=== PATIENT | male | born 1960 | race Caucasian/White ===

== ENCOUNTER 2019-04-04 13:37 | Emergency (ER) | payer OTHER, SELFPAY ==
--- NOTE | 2019-04-04 13:39 | ED.GENADULT ---
HPI - General Adult General Chief complaint: Wound/Laceration Stated complaint: Puncture wound on bottom of feet Time Seen by Provider: 04/04/19 13:58 Source: patient Mode of arrival: ambulatory Limitations: no limitations History of Present Illness HPI narrative: 59-year-old male patient presents to the [facility] with complaints of puncture wound to bilateral feet. Patient states that happened about a week ago and states that he stepped with his right foot onto a screw and then when he stepped back he also stepped on with his left foot onto a nail. Patient states he did puncture both of the areas. Patient states he has been cleaning the area with rubbing alcohol and hydrogen peroxide. Patient unaware of when his last tetanus shot was. Patient denies being a diabetic that he is aware of. Patient states he was trying to treat this for himself however the last couple of days he has noticed some white discharge coming from the left foot as well as increase in pain to both sites. Patient states that when the injury did occur the nail and screw did go through the shoe. Patient states he did take 1 dose of ibuprofen yesterday but really has not been taking too much for the pain. Related Data Allergies Allergy/AdvReac Type Severity Reaction Status Date / Time No Known Allergies Allergy Unknown Unverified 12/06/18 11:11 Review of Systems Review of Systems: Narrative: CONSTITUTIONAL: Denies fever, chills, or sweats. EYES: Denies visual changes, redness, or discharge. ENT: Denies rhinorrhea, congestion, sore throat, or otalgia. CARDIOVASCULAR: Denies chest pain, palpitations, or edema. RESPIRATORY: Denies cough or dyspnea. GASTROINTESTINAL: Denies abdominal pain, nausea, vomiting, or diarrhea. GENITOURINARY: Denies dysuria or hematuria. SKIN: Denies rash or itching. Positive puncture wounds to bilateral feet x1 week MUSCULOSKELETAL: Denies back pain, joint pain, or myalgia. NEUROLOGIC: Denies headache, numbness, or weakness. PSYCHIATRIC: Denies anxiety or depression. [facility] Past Medical History Medical History (Updated 04/04/19 @ 14:13 by ANA Go) Anxiety Depression Emphysema lung Hypertension Surgical History Surgical History (Updated 04/04/19 @ 13:40 by ANA Go) History of appendectomy Social History Social History Smoking status: Former smoker Smoking end date: 02/28/94 Alcohol intake: current Comments At the time of my signature I agree with nursing past medical history, surgical, social, and family history. There is no relevant family history pertinent to the presenting complaint. Exam Narrative: Exam Narrative: GENERAL: Well-appearing, well-nourished, and in no acute distress. HEAD: Normocephalic, atraumatic. EYES: PERRLA and EOMI. ENT: Nares clear, no rhinorrhea or epistaxis. Mucous membranes moist. NECK: Supple. No lymphadenopathy CHEST: Clear to auscultation. No respiratory distress. HEART: Regular rate and rhythm. No murmur heard. Normal peripheral pulses. ABDOMEN: Soft, nontender, nondistended, normal active bowel sounds. EXTREMITIES: Normal range of motion. No edema. SKIN: Warm, dry, no rash. Patient has a small black puncture wound noted to the ball of the left foot in between the third and fourth metatarsal on the sole of the foot. There is no obvious surrounding erythema but there is tenderness on palpation as well as a little hard area around the wound. There is no warmth noted. No active discharge noted at this time. There is another puncture wound noted to the sole of the right foot. Does have some tenderness noted to the area as well but no surrounding erythema no warmth. NEURO: No focal deficits. Alert and oriented x3. Course Vital Signs Vital signs: Vital Signs Temperature 36.1 C L 04/04/19 13:49 Pulse Rate 76 04/04/19 13:49 Respiratory Rate 18 04/04/19 13:49 Blood Pressure 151/96 H 04/04/19
[2019-04-04 13:49] VITALS: BP 151/96; PULSE 76; RESP 18; TEMP 36.1; O2SAT 99
[2019-04-04] MEDS: TETANUS,DIPHTHERIA,AC PERTUSSIS ADULT 0.5 ML (ADACEL) IM (14:15)
== END 2019-04-04 14:35 | disposition home or self-care (01) ==
PROVIDERS: Emergency Provider Nurse Practitioner Family
DX: S91.332A Puncture wound without foreign body, left foot, initial encounter (principal); S91.331A Puncture wound without foreign body, right foot, initial encounter; W45.0XXA Nail entering through skin, initial encounter; Z23 Encounter for immunization; Z87.891 Personal history of nicotine dependence; J43.9 Emphysema, unspecified; I10 Essential (primary) hypertension
CPT/HCPCS: 90471; 90715; 99213; G0463

== ENCOUNTER 2019-04-12 12:20 | Outpatient (CLI) | payer OTHER, SELFPAY ==
[2019-04-12 13:17] LABS: Basophils Absolute Auto 0.1 K/mm3 (0.0-0.1); Basophils Percent Auto 1.1 % (0.2-1.2); Eosinophils Absolute Auto 0.9 K/mm3 (0-0.3); Eosinophils Percent Auto 9.3 % (0-4.4); Hematocrit 48.9 % (42.0-52.0); Hemoglobin 16.9 g/dL (14.0-18.0); Immature Granulocyte Absolute 0.05 K/mm3 (0.00-0.031); Immature Granulocyte Percent A 0.5 % (0-0.5); Lymphocytes Absolute Auto 3.08 K/mm3 (0.9-3.2); Lymphocytes Percent Auto 32.9 % (18.3-44.2); Mean Corpuscular HGB Conc 34.6 g/dl (32-36); Mean Corpuscular Hemoglobin 31.5 pg (26-34); Mean Corpuscular Volume 91.2 fl (80-100); Mean Platelet Volume 10.2 fl (7.4-10.4); Monocytes Absolute Auto 0.7 K/mm3 (0.1-0.6); Monocytes Percent Auto 6.9 % (2.6-8.5); Neutrophils Absolute Auto 4.6 K/mm3 (1.3-6.7); Neutrophils Percent Auto 49.3 % (45.5-73.1); Platelet Count Result 184 k/mm3 (150-375); Red Blood Count 5.36 M/mm3 (4.6-6.20); Red Cell Distribution Width 13.2 % (11.5-14.5); White Blood Count 9.4 K/mm3 (4.5-10.0)
[2019-04-12 13:25] LABS: Alanine Aminotransferase 21 U/L (4-50); Albumin Level 4.5 g/dL (3.5-5.1); Alkaline Phosphatase 43 U/L (38-126); Aspartate Amino Transferase 24 U/L (17-59); Bilirubin,Total 0.6 mg/dL (0.2-1.3); Blood Urea Nitrogen 24 mg/dL (9-20); Carbon Dioxide 26 mmol/L (22-30); Chloride 101 mmol/L (98-107); Cholesterol 211 mg/dL (0-200); Estimated Glomerular Filt Rate 57; Glucose 86 mg/dL (75-110); HDL Direct 42 mg/dL; Potassium 4.3 mmol/L (3.4-5.0); Sodium 141 mmol/L (137-145); Triglycerides 231 mg/dL (<150)
[2019-04-12 13:35] LABS: LDL Cholesterol Direct 131 mg/dL
[2019-04-12 13:54] LABS: Prostate Specific Antigen 0.8 ng/mL (< OR = 4.0)
[2019-04-12 14:00] LABS: Hepatitis B Core IgM Result Negative (Negative)
[2019-04-12 14:05] LABS: Vitamin D 25 Hydroxy 17.1 ng/mL
[2019-04-12 14:12] LABS: HIV 1/2 Ab P24 Ag Result Negative (Negative); Hepatitis C Virus Antibody Negative (Negative)
[2019-04-13 07:31] LABS: Rapid Plasma Reagin Non-Reactive (NonReactive)
== END 2019-04-12 12:21 | disposition home or self-care (01) ==
PROVIDERS: PCP Physician Assistant; Visit Provider Family Medicine
DX: Z00.00 Encounter for general adult medical examination without abnormal findings (principal); Z11.3 Encounter for screening for infections with a predominantly sexual mode of transmission
CPT/HCPCS: 36415; 80053; 80061; 82306; 84153; 84443; 85025; 86592; 86703; 86705; 86803; G0432

== ENCOUNTER 2019-10-03 13:09 | Outpatient (CLI) | payer OTHER, SELFPAY ==
--- NOTE | ~2019-10-03 | XR_ITS ---
XR foot LT 2V DATE: 10/03/2019 13:24 INDICATION: Stubbed fifth toe 2 days ago. Pain. TECHNIQUE: AP and lateral views of left foot COMPARISON: None FINDINGS: No fracture or dislocation, periosteal reaction or bone destruction. IMPRESSION: Negative Reviewed, dictated and finalized at location B. IMPRESSION: Negative
== END 2019-10-03 13:10 | disposition home or self-care (01) ==
LOC: ANHIMG 13:12
PROVIDERS: PCP Family Medicine; Visit Provider Family Medicine
DX: M79.672 Pain in left foot (principal)
CPT/HCPCS: 73620

== ENCOUNTER 2019-10-23 10:36 | Outpatient (CLI) | payer OTHER, SELFPAY ==
[2019-10-23 11:07] LABS: Basophils Absolute Auto 0.1 K/mm3 (0.0-0.1); Eosinophils Absolute Auto 0.9 K/mm3 (0-0.3); Eosinophils Percent Auto 10.2 % (0-4.4); Hematocrit 44.6 % (42.0-52.0); Hemoglobin 15.5 g/dL (14.0-18.0); Immature Granulocyte Absolute 0.02 K/mm3 (0.00-0.031); Immature Granulocyte Percent A 0.2 % (0-0.5); Lymphocytes Absolute Auto 3.41 K/mm3 (0.9-3.2); Lymphocytes Percent Auto 38.2 % (18.3-44.2); Mean Corpuscular HGB Conc 34.8 g/dl (32-36); Mean Corpuscular Hemoglobin 31.9 pg (26-34); Mean Corpuscular Volume 91.8 fl (80-100); Mean Platelet Volume 10.3 fl (7.4-10.4); Monocytes Absolute Auto 0.5 K/mm3 (0.1-0.6); Monocytes Percent Auto 5.6 % (2.6-8.5); Neutrophils Percent Auto 44.8 % (45.5-73.1); Platelet Count Result 176 k/mm3 (150-375); Red Blood Count 4.86 M/mm3 (4.6-6.20); Red Cell Distribution Width 12.9 % (11.5-14.5); White Blood Count 8.9 K/mm3 (4.5-10.0)
== END 2019-10-23 10:37 | disposition home or self-care (01) ==
PROVIDERS: PCP Family Medicine; Visit Provider Family Medicine
DX: S99.922A Unspecified injury of left foot, initial encounter (principal); X58.XXXA Exposure to other specified factors, initial encounter
CPT/HCPCS: 36415; 85025

== ENCOUNTER 2020-04-30 13:34 | Emergency (ER) | payer OTHER, SELFPAY ==
--- NOTE | ~2020-04-30 | CT_ITS ---
EXAMINATION: CT sinus w con DATE: 04/30/2020 16:50 INDICATION: Nasal obstruction TECHNIQUE: Computed tomography (CT) of the paranasal sinuses was performed with 75 mL Omnipaque-350 i ntravenous contrast. Sagittal and coronal reconstructions were obtained. Iterative reconstruction mamadou hnique was employed. The dose-length product was 324.57 mGy-cm. COMPARISON: None FINDINGS: There is rightward deviation of the nasal septum with right-sided osseous spike. There is complete op acification of the bilateral frontal sinuses, the bilateral frontoethmoidal recesses, several bilater al ethmoid air cells and the bilateral ostiomeatal units. Polypoid appearing mucosal thickening in th e nasal cavity, the right maxillary and bilateral sphenoid sinuses. In the nasal cavity the mucosal t hickening appears to extend through a defect in the medial wall of the left maxillary sinus likely re presenting sequela of prior antral window procedure. Mild mucosal thickening in the left maxillary si nus with small amount of layering fluid in the dependent aspect of the sinus. There is likely postope rative defect in the posterior wall of the left maxillary sinus. Bilateral orbits are normal. Mastoid air cells and middle ear cavities are clear. No acute maxillofacial fractures. The maxilla is edentu lous. Brain is unremarkable. No abnormally enhancing lesions identified. There is some scarring along the midline of the posterior frontal scalp. IMPRESSION: 1. Extensive sinus disease with occlusion of the bilateral ostiomeatal units and complete opacificati on of the bilateral frontal sinuses, frontoethmoidal recesses and several bilateral ethmoid air cells . 2. Additional prominent polypoidal mucosal thickening in the bilateral nasal cavities. Reviewed, dictated and finalized at location B. [employer]ER IMPRESSION: 1. Extensive sinus disease with occlusion of the bilateral ostiomeatal units an d complete opacification of the bilateral frontal sinuses, frontoethmoidal rece sses and several bilateral ethmoid air cells. 2. Additional prominent polypoidal mucosal thickening in the bilateral nasal ca vities.
[2020-04-30 13:48] VITALS: BP 154/100; PULSE 102; RESP 18; TEMP 36.7; O2SAT 96
--- NOTE | 2020-04-30 15:16 | ED.HA ---
HPI - Headache General Chief Complaint: Headache <Diogo Bond MD - Last Filed: 04/30/20 19:03> Stated Complaint: sinus issues x 6 weeks <Diogo Bond MD - Last Filed: 04/30/20 19:03> Time Seen by Provider: 04/30/20 15:16 <Diogo Bond MD - Last Filed: 04/30/20 19:03> History of Present Illness HPI Narrative: 60 yo male presents for sinus issues. He reports that he has had sinus pressure and nasal obstruction for the past 6 weeks. He just completed a course of antibiotics without improvement. No fevers. He says that there is something in his right nostril that bulges out when he blows his nose. <Diogo Bond MD - Last Filed: 04/30/20 19:03> Related Data Allergies/Adverse Reactions: Allergies Allergy/AdvReac Type Severity Reaction Status Date / Time No Known Allergies Allergy Unknown Unverified 12/06/18 11:11 <Diogo Bond MD - Last Filed: 04/30/20 19:03> Review of Systems Review of Systems: All systems reviewed & are unremarkable except as noted in HPI and below <Diogo Bond MD - Last Filed: 04/30/20 19:03> Constitutional: Constitutional: Denies chills and Denies fever(s) <Diogo Bond MD - Last Filed: 04/30/20 19:03> Eyes: Eyes: Reports no additional eye complaints <Diogo Bond MD - Last Filed: 04/30/20 19:03> ENT: Reports nasal congestion and Denies sore throat <Diogo Bond MD - Last Filed: 04/30/20 19:03> Cardiovascular: Cardiovascular: Denies chest pain <Diogo Bond MD - Last Filed: 04/30/20 19:03> Gastrointestinal: Gastrointestinal: Denies nausea <Diogo Bond MD - Last Filed: 04/30/20 19:03> Genitourinary: Genitourinary: Reports no additional male genitourinary complaints <Diogo Bond MD - Last Filed: 04/30/20 19:03> Neurologic: Denies dizziness and Denies weakness <Diogo Bond MD - Last Filed: 04/30/20 19:03> [facility] Past Medical History Medical History: Medical History Anxiety Depression Emphysema lung Hypertension <Diogo Bond MD - Last Filed: 04/30/20 19:03> Surgical History Surgical History: Surgical History History of appendectomy <Diogo Bond MD - Last Filed: 04/30/20 19:03> Social History Social History: Social History Smoking status: Former smoker Smoking end date: 02/28/94 Alcohol intake: current Gender identity (if verbalized by the patient): Male <Diogo Bond MD - Last Filed: 04/30/20 19:03> Exam Const: General: no acute distress and alert <Diogo Bond MD - Last Filed: 04/30/20 19:03> Orientation/consciousness: patient oriented x3 <Diogo Bond MD - Last Filed: 04/30/20 19:03> HENMT: Face and sinus: no sinus tenderness <Diogo Bond MD - Last Filed: 04/30/20 19:03> Mouth: Yes moist mucous membranes abnormal <Diogo Bond MD - Last Filed: 04/30/20 19:03> Other: Large mass protruding from posterior portion of the nose, appears fluid filled. <Diogo Bond MD - Last Filed: 04/30/20 19:03> Eyes: Pupils: Equal, round and reactive pupils present <Diogo Bond MD - Last Filed: 04/30/20 19:03> EOM: EOMs intact bilaterally <Diogo Bond MD - Last Filed: 04/30/20 19:03> Neck: Neck: normal visual inspection and lymphadenopathy noted <Diogo Bond MD - Last Filed: 04/30/20 19:03> Resp: Effort & Inspection: normal respiratory effort <Diogo Bond MD - Last Filed: 04/30/20 19:03> Skin: General skin exam: normal color <Diogo Bond MD - Last Filed: 04/30/20 19:03> Neuro: General: patient oriented x3, moves all extremities, no focal motor deficits and CN's II-XI intact bilaterally <Diogo Bond MD - Last Filed: 04/30/20 19:03> Speech: normal speech <G
[2020-04-30 16:44] LABS: Estimated CRCL calculation 86 ml/min; Estimated Glomerular Filt Rate > 60
[2020-04-30 17:24] VITALS: BP 153/101; PULSE 85; RESP 18; TEMP 36.1; O2SAT 99
[2020-04-30] MEDS: predniSONE 20 MG TABLET 60 MG PO (17:27)
[2020-04-30 18:24] VITALS: BP 148/99; PULSE 83; RESP 19; TEMP 36.4; O2SAT 98
== END 2020-04-30 18:26 | disposition home or self-care (01) ==
PROVIDERS: Emergency Provider Emergency Medicine; PCP Family Medicine
DX: J33.0 Polyp of nasal cavity (principal); J43.9 Emphysema, unspecified; I10 Essential (primary) hypertension; Z87.891 Personal history of nicotine dependence
CPT/HCPCS: 70487; 99284; J7512; Q9967

== ENCOUNTER 2021-01-22 08:21 | Emergency (ER) | payer OTHER, SELFPAY ==
[2021-01-22] VITALS (8 sets, daily range): BP systolic 148–191; BP diastolic 96–141; PULSE 76–86; RESP 16–32; TEMP 36.8; O2SAT 95–97
--- NOTE | ~2021-01-22 | XR_ITS ---
EXAMINATION: XR chest 2V DATE: 01/22/2021 09:19 INDICATION: Dyspnea TECHNIQUE: AP and lateral views of the chest are obtained. COMPARISON: 12/06/2018 FINDINGS: The lungs are free of acute opacities. There is no pleural effusion or pneumothorax. The ca rdiomediastinal silhouette is normal. There is moderate thoracic spondylosis. IMPRESSION: 1. No acute cardiopulmonary abnormality. Reviewed, dictated and finalized at location A. [place] MANAGER
--- NOTE | 2021-01-22 08:27 | ECG_ITS ---
Measurements Intervals [place] Rate: 88 P: 64 WV: 148 QRS: 37 QRSD: 101 T: 62 QT: 361 QTc: 437 Interpretive Statements SINUS RHYTHM DELAYED PRECORDIAL R/S TRANSITION BASELINE ARTIFACT- I, II, III, AVR, AVL,A VF, V1, V6 BORDERLINE ECG Electronically Signed On 01-22-2021 11:32:46 MANAGER UNDERWRITING by Blayne Nolasco D.O.
--- NOTE | 2021-01-22 08:28 | ED.SOB ---
HPI - SOB/Dyspnea General Chief Complaint: Shortness of Breath/Dyspnea Stated Complaint: SOB Time Seen by Provider: 01/22/21 08:23 Source: patient History of Present Illness HPI Narrative: Patient presents with shortness of breath reports of the present for the past 3 to 4 days getting progressively worse. He most noticed that with physical activity. Denies any chest pain or lightheadedness denies any nausea or vomiting denies any change in taste or smell. Has not noted any fevers. There is an associated cough. He is not vaccinated as Covid and does not have any known sick contacts Related Data Allergies Allergy/AdvReac Type Severity Reaction Status Date / Time No Known Allergies Allergy Unknown Verified 01/22/21 08:32 Review of Systems Review of Systems: CONSTITUTIONAL: Denies fever, chills, or sweats. EYES: Denies visual changes, redness, or discharge. ENT: Denies rhinorrhea, congestion, sore throat, or otalgia. CARDIOVASCULAR: Denies chest pain, palpitations, or edema. RESPIRATORY: Reports shortness of breath and cough GASTROINTESTINAL: Denies abdominal pain, nausea, vomiting, or diarrhea. GENITOURINARY: Denies dysuria or hematuria. SKIN: Denies rash or itching. MUSCULOSKELETAL: Denies back pain, joint pain, or myalgia. NEUROLOGIC: Denies headache, numbness, dizziness, or weakness. PSYCHIATRIC: Denies anxiety or depression. All systems reviewed & are unremarkable except as noted in HPI and below PMFSH Past Medical History Medical History Anxiety Depression Emphysema lung Hypertension Surgical History Surgical History History of appendectomy Social History Social History Smoking status: Former smoker Smoking end date: 02/28/94 Alcohol intake: current Gender identity (if verbalized by the patient): Male Exam Narrative: GENERAL: Well-appearing, well-nourished, and in no acute distress. HEAD: Normocephalic, atraumatic. EYES: PERRLA and EOMI. ENT: Nares clear, no rhinorrhea or epistaxis. Mucous membranes moist. NECK: Supple. No masses. No JVD CHEST: Diffuse rhonchi and wheezing in all lung ny HEART: Regular rate and rhythm. No murmur heard. Normal peripheral pulses. ABDOMEN: Soft, nontender, nondistended, normal active bowel sounds. EXTREMITIES: Normal range of motion. No edema. SKIN: Warm, dry, no rash. NEURO: No focal deficits. Alert and oriented x3. PSYCH: Normal mood and affect. Course Reevaluation(s) Reevaluation #1: Patient reports feeling much improved repeat lung exam with continued mild rhonchi but improved from initial exam patient feels he can manage his symptoms at home. He was offered further management in the ER as well as admission but given his improvement for to go home. Date: 01/22/21 Time: 10:32 Vital Signs Vital signs: Vital Signs Temperature 36.8 C 01/22/21 08:25 Pulse Rate 83 01/22/21 08:25 Respiratory Rate 32 H 01/22/21 08:25 Blood Pressure 191/129 H 01/22/21 08:25 Pulse Oximetry 95 01/22/21 08:25 Temperature 36.8 C 01/22/21 08:25 Pulse Rate 77 01/22/21 10:45 Respiratory Rate 16 01/22/21 10:45 Blood Pressure 148/96 H 01/22/21 10:45 Pulse Oximetry 97 01/22/21 10:45 MDM - SOB/Dyspnea MDM Narrative Medical decision making narrative: H&P as above, vs with hypertension patient is known hypertensive noncompliant with therapies, pt looks clinically well, exam with diffuse rhonchi, labs unremarkable, img unremarkable for acute process, additional labs/img considered, symptomatic relief available as needed, on reevaluation pt continues to looks clinically well. Suspect chronic lung disease given patient's significant smoking history, dns pneumonia, severe sepsis, severe dehydration, pneumothorax. plan to tx/monitor as op w/ pcm f/u findings/plan discussed with pt, pt agree/comfor
[2021-01-22] MEDS: IPRATROPIUM BR 0.02% INH SOLN 0.5 MG/2.5 ML VIAL 1.5 MG INHALATION (08:53)
[2021-01-22] MEDS: ALBUTEROL SULFATE NEB 2.5 MG/0.5 ML INH 15 MG INHALATION (08:53)
[2021-01-22] MEDS: methylPREDNISolone SOD SUCC 125 MG VIAL IV PUSH (09:01)
[2021-01-22 09:02] LABS: Basophils Absolute Auto 0.1 K/mm3 (0.0-0.1); Eosinophils Absolute Auto 0.6 K/mm3 (0-0.3); Eosinophils Percent Auto 5.9 % (0-4.4); Hematocrit 48.6 % (42.0-52.0); Immature Granulocyte Absolute 0.02 K/mm3 (0.00-0.031); Immature Granulocyte Percent A 0.2 % (0-0.5); Lymphocytes Absolute Auto 2.42 K/mm3 (0.9-3.2); Lymphocytes Percent Auto 22.4 % (18.3-44.2); Mean Corpuscular Hemoglobin 32.2 pg (26-34); Mean Platelet Volume 10.5 fl (7.4-10.4); Monocytes Absolute Auto 0.6 K/mm3 (0.1-0.6); Monocytes Percent Auto 5.9 % (2.6-8.5); Neutrophils Percent Auto 64.6 % (45.5-73.1); Platelet Count Result 192 k/mm3 (150-375); Red Blood Count 5.28 M/mm3 (4.6-6.20); Red Cell Distribution Width 12.5 % (11.5-14.5); White Blood Count 10.8 K/mm3 (4.5-10.0)
[2021-01-22 09:04] LABS: Alveolar/Arterial O2 Gradient 31.4 mmHg; Base Excess ABG 0.2 mEq/l (+/-2.0); Device ROOM AIR; Fractional Inspired Oxygen 21 %; HCO3 ABG 25.1 mEq/l (22.0-26.0); Modified Allen's Test Pass; Oxygen Content ABG 21.9 %vol (16.0-22.0); Oxygen Saturation ABG 93.6 % (95.0-100.0); Oxyhemoglobin 92.2 % THb (90.0-100.0); PCO2 ABG 41.8 mmHg (35.0-45.0); PO2 ABG 68.3 mmHg (80.0-100.0); PO2 FiO2 Ratio Arterial Blood 3.25 %; Site Drawn RIGHT RADIAL; Total Hemoglobin 16.9 g/dL (12.0-18.0); pH ABG 7.397 (7.350-7.450)
[2021-01-22 10:10] LABS: Alanine Aminotransferase 17 U/L (4-50); Albumin Level 4.8 g/dL (3.5-5.1); Alkaline Phosphatase 46 U/L (38-126); Anion Gap 12 mmol/L (8-16); Aspartate Amino Transferase 24 U/L (17-59); Bilirubin,Total 0.5 mg/dL (0.2-1.3); Blood Urea Nitrogen 11 mg/dL (9-20); Carbon Dioxide 27 mmol/L (22-30); Chloride 103 mmol/L (98-107); Estimated Glomerular Filt Rate > 60; Glucose 124 mg/dL (65-110); Potassium 3.7 mmol/L (3.4-5.0); Sodium 142 mmol/L (137-145)
== END 2021-01-22 10:50 | disposition home or self-care (01) ==
PROVIDERS: Emergency Provider Emergency Medicine; PCP Family Medicine
DX: R06.00 Dyspnea, unspecified (principal); J43.9 Emphysema, unspecified; I10 Essential (primary) hypertension; Z87.891 Personal history of nicotine dependence
CPT/HCPCS: 36415; 36600; 71046; 80053; 82805; 85025; 93005; 94640; 96365; 96375; 99284; J0131; J2930